=== PATIENT | female | born 1945 | race American Indian/Alaskan Native ===

== ENCOUNTER 2016-09-11 10:12 | Inpatient (IN) | payer MEDICARE ==
[2016-09-11 12:19] LABS: Eosinophils % (Auto) 1.7 % (0.0-4.3); Hematocrit 33.4 % (30.3-42.9); Hemoglobin 10.8 gm/dl (10.1-14.3); Mean Corpuscular HGB Conc 33 % (30-34); Mean Corpuscular Hemoglobin 30 pg (28-32); Mean Corpuscular Volume 93 fl (79-97); Platelet Count 203 K/mm3 (140-440); Red Blood Count 3.59 M/mm3 (3.65-5.03); White Blood Count 4.7 K/mm3 (4.5-11.0)
[2016-09-11 12:42] LABS: Anion Gap 18 mmol/L; BUN/Creatinine Ratio 18.57; Blood Urea Nitrogen 13 mg/dL (7-17); Calcium 9.2 mg/dL (8.4-10.2); Carbon Dioxide 25 mmol/L (22-30); Glucose 87 mg/dL (65-100); Potassium 3.9 mmol/L (3.6-5.0); Sodium 138 mmol/L (137-145)
--- NOTE | 2016-09-11 22:15 | Emergency Department Report ---
HPI - General Chief Complaint: Extremity Problem,Nontraumatic Time Seen by Provider: 09/11/16 21:39 - HPI HPI: This is a 70-year-old F AA female presents the emergency department from her primary care doctor's office, Dr. Jelani Jurado, with complaints of left shoulder pain, a burning chest discomfort, occasional shortness of breath and what appears to be some dysrhythmia. The patient has chronic left shoulder pain that has been worse lately. She was trying to get [employer] but due to traffic she ended up following up with her primary care doctor instead. She mentioned that she had the burning sensation in the chest and they did an EKG and physical examination and told her "something was wrong with my heart." Patient has a history of hypertension, CVA, seizures. She also has been having blood pressure issues and that was another reason she was sent in by the primary care doctor's office. Patient is on amlodipine and lisinopril and says that she takes them compliantly. Patient also is on Keppra for seizures and Eloquist, that she says she takes for the history of stroke. No recent travel or sick contacts at home. She denies any history of RI, PE/DVT. She has not taken anything for symptoms prior to presentation. ED Past Medical Hx - Past Medical History Hx Hypertension: Yes Hx Seizures: Yes - Surgical History Additional Surgical History: RIGHT KNEE SURGERY. FIBROIDS REMOVED. RIGHT ROTATOR CUFF. HEMORRHOIDECTOMY. TUBAL LIGATION - Social History Smoking Status: Never Smoker Substance Use Type: None - Medications Home Medications: Home Medications Medication Instructions Recorded Confirmed Last Taken Type levETIRAcetam [Keppra] 750 mg PO BID #60 tablet 10/06/14 08/16/15 08/16/15 Rx Amlodipine Besylate [Norvasc] 2.5 mg PO DAILY 08/16/15 08/16/15 08/16/15 History Dicyclomine [Bentyl] 10 mg PO QID PRN #20 capsule 08/16/15 Unknown Rx Lisinopril [Zestril TAB] 10 mg PO BID 08/16/15 08/16/15 08/16/15 History Ondansetron [Zofran Odt] 4 mg PO QID PRN #20 tab.rapdis 08/16/15 Unknown Rx Diclofenac Sodium 75 mg PO BID #20 tablet. 04/17/16 Unknown Rx traMADol [Ultram] 50 mg PO Q6HR PRN #20 tablet 04/17/16 Unknown Rx ED Review of Systems ROS: Stated complaint: LT ARM PAIN Other details as noted in HPI Comment: All other systems reviewed and negative Constitutional: denies: chills, fever Eyes: denies: eye pain, eye discharge, vision change ENT: denies: ear pain, throat pain Respiratory: shortness of breath. denies: cough Cardiovascular: chest pain. denies: syncope Gastrointestinal: denies: abdominal pain, nausea, diarrhea Genitourinary: denies: urgency, dysuria, discharge Musculoskeletal: arthralgia. denies: back pain Skin: denies: rash, lesions Neurological: denies: headache, weakness, paresthesias Physical Exam - Physical Exam Vital Signs: Vital Signs 09/11/16 09/11/16 09/11/16 11:39 21:41 21:42 Temperature 98.5 F 98.1 F Pulse Rate 81 98 H Respiratory 16 16 14 Rate Blood Pressure 170/120 Blood Pressure 190/133 [Left] O2 Sat by Pulse 100 96 96 Oximetry Physical Exam: GENERAL: The patient is well-developed well-nourished. HEENT: Normocephalic. Atraumatic. Extraocular motions are intact. Patient has moist mucous membranes. Pupils equal reactive to light bilaterally. NECK: Supple. Trachea is midline. CHEST/LUNGS: Clear to auscultation. There is no respiratory distress noted. Chest discomfort is not reproducible to palpation of chest wall. HEART/CARDIOVASCULAR: Irregularly irregular with slightly rapid rate. ABDOMEN: Abdomen is soft, nontender. Patient has normal bowel sounds. There is no abdominal distention. SKIN: Warm and dry. NEURO: The patient is awake, alert, and oriented. The patient is cooperative. The patient has no focal neurologic deficits. The patient has normal speech. MUSCULOSKELETAL: There is no tenderness or deformity. There is no limitation range of motion. There is no evidence of acute injury. Cap refill less than 2 seconds. Radial pulse +2 over 4 bilaterally. ED Course Vital Signs 09/11/16 09/11/16 09/11/16 11:39 21:41 21:42 Temperature 98.5 F 98.1 F Pulse Rate 81 98 H Respiratory 16 16 14 Rate Blood Pressure 170/120 Blood Pressure 190/133 [Left] O2 Sat by Pulse 100 96 96 Oximetry ED Medical Decision Making - Lab Data Result diagrams: 09/11/16 11:59 09/11/16 12:07 - EKG Data -: EKG Interpreted by Me - EKG Data When compared to previous EKG there are: changes noted (previous EKG shows normal sinus rhythm, normal EKG) Interpretation: other (initial fibrillation, rate of 101 bpm, right bundle branch block) - Radiology Data Radiology results: report reviewed, image reviewed interpreted by me: Chest x-ray did not show any acute process. Heart is normal shape and size. No effusions. No pneumothorax. No signs of pneumonia seen. CT angiography of the chest does not show any signs of pulmonary embolism or dissection. The lungs are clear. No infiltrate, effusion or pneumothorax. - Medical Decision Making This is a 70-year-old female presents to the emergency department after being sent in by her PCP with complaint of uncontrolled blood pressure, chest pain, left shoulder pain and some abnormality of her heart. As soon as the patient was examined and reviewed on the monitor, it appeared that the patient had subsided irregular rhythm. This was confirmed on EKG in which the patient was found to have atrial fibrillation. Patient had some mild RVR. She also has some very elevated blood pressure. She was given a dose of Cardizem which did not cardiovert her did control her rate and helped with the blood pressure. Patient's labs and then mostly unremarkable. There've been negative troponins 3. However the patient did have a slightly elevated an equivocal d-dimer so a CT angiography of the chest was done that did not show any PE, dissection or any acute process. There also was no pleural effusions on CT which is important as the patient's BNP was greater than 3000. She has no history of CHF , no pleural effusions and no pitting edema. Patient is currently on Eloquist which she says is due to her stroke. She has no history of previous atrial fibrillation or dysrhythmia. With the patient's chest pain, new onset atrial fibrillation she will be admitted to the hospital further evaluation and treatment. She's been accepted for admission by the hospitalist, Dr. Cabrales. - Differential Diagnosis atrial fibrillation, RI, PE, CHF Critical Care Time: No Critical care attestation.: If time is entered above; I have spent that time in minutes in the direct care of this critically ill patient, excluding procedure time. ED Disposition Clinical Impression: Hypertensive urgency, New onset atrial fibrillation Atrial fibrillation Qualifiers: Atrial fibrillation type: unspecified Qualified Code(s): I48.91 - Unspecified atrial fibrillation Chest pain Qualifiers: Chest pain type: unspecified Qualified Code(s): R07.9 - Chest pain, unspecified Disposition: OP ADMITTED IP TO THIS HOSP Is pt being admited?: Yes Does the pt Need Aspirin: Yes Condition: Stable Instructions: Chest Pain (ED) Referrals: JELANI JURADO MD [Primary Care Provider] - 3-5 Days Time of Disposition: 01:42
[2016-09-11] MEDS ORDERED: CARDIZEM IV ONE (23:28)
[2016-09-12] MEDS ORDERED: NACL ONE (00:11)
--- NOTE | 2016-09-12 00:47 | Cat Scan Report ---
FINAL REPORT PROCEDURE: CT ANGIO CHEST TECHNIQUE: Computerized tomographic angiography of the chest was performed after the IV injection of iodinated nonionic contrast including image processing. The image data was postprocessed using 2-dimensional multiplanar reformatted (MPR) and 3-dimensional (MIP and/or volume rendered) techniques. HISTORY: CP, elevated dimer COMPARISON: No prior studies are available for comparison. FINDINGS: Heart and pericardium: Normal. Thoracic aorta: Mild atherosclerosis of the aorta and branching vessels. Pulmonary vasculature: No evidence of pulmonary arterial emboli.. Lymph nodes: No enlarged thoracic lymph nodes. Lungs: The lungs are clear. No infiltrate, effusion or pneumothorax. The central airway is patent. Pleural space: No effusion, thickening, or pneumothorax. Musculoskeletal structures: No significant abnormality. Upper abdominal structures: No significant abnormality. IMPRESSION: The lungs are clear. No infiltrate, effusion or pneumothorax. There is no evidence of pulmonary arterial emboli.
--- NOTE | 2016-09-12 01:22 | History and Physical Report ---
History of Present Illness Chief complaint: My shoulder hurts History of present illness: 70 Yo Female with HTN, CVA with RHP, Seizure Disorder presents to ED for evaluation. Pt states that she has been experiencing pain in her left shoulder for the past 3 days with worsening symptoms for the past day. Pt seen and evaluated in ED and found to have new onset Atrial Fib with RVR. Pt denies fever , chills, CP, Palpitations, NVD, recent ill contacts, brbpr, prolonged travel/ immobility, individual/family [id number] of DVT/PE, Syncope, hemoptysis, or productive cough. Past History Past Medical History: hypertension, seizures, stroke Past Surgical History: Other (tubal ligation, right Knee surgery, uterine fibroid excision) Social history: . denies: smoking, alcohol abuse, prescription drug abuse Family history: hypertension Medications and Allergies Allergies Allergy/AdvReac Type Severity Reaction Status Date / Time No Known Allergies Allergy Verified 09/11/16 11:44 Home Medications Medication Instructions Recorded Confirmed Last Taken Type levETIRAcetam [Keppra] 750 mg PO BID #60 tablet 10/06/14 09/12/16 08/16/15 Rx Amlodipine Besylate [Norvasc] 2.5 mg PO DAILY 08/16/15 09/12/16 08/16/15 History Dicyclomine [Bentyl] 10 mg PO QID PRN #20 capsule 08/16/15 09/12/16 Unknown Rx Lisinopril [Zestril TAB] 10 mg PO BID 08/16/15 09/12/16 08/16/15 History Ondansetron [Zofran Odt] 4 mg PO QID PRN #20 tab.rapdis 08/16/15 09/12/16 Unknown Rx Diclofenac Sodium 75 mg PO BID #20 tablet.dr 04/17/16 09/12/16 Unknown Rx traMADol [Ultram] 50 mg PO Q6HR PRN #20 tablet 04/17/16 09/12/16 Unknown Rx Review of Systems All systems: negative Constitutional: chronic pain Exam - Constitutional Vitals: Temp Pulse Resp BP Pulse Ox 98.1 F 124 H 12 200/124 97 09/11/16 21:41 09/11/16 23:54 09/11/16 23:44 09/11/16 23:54 09/11/16 23:44 General appearance: Present: mild distress - EENT Eyes: Present: PERRL ENT: hearing intact, clear oral mucosa - Neck Neck: Present: supple, normal ROM - Respiratory Respiratory effort: normal Respiratory: bilateral: CTA - Cardiovascular Rhythm: irregularly irregular Heart Sounds: Present: S1 & S2. Absent: rub, click - Extremities Extremities: pulses symmetrical, No edema Peripheral Pulses: within normal limits - Abdominal General gastrointestinal: Present: soft, non-tender, non-distended, normal bowel sounds Female genitourinary: Present: normal - Integumentary Integumentary: Present: clear, warm, dry - Musculoskeletal Musculoskeletal: gait normal, strength equal bilaterally - Psychiatric Psychiatric: appropriate mood/affect, intact judgment & insight - Neurologic Neurologic: CNII-XII intact, moves all extremities Results - Labs CBC & Chem 7: 09/11/16 11:59 09/11/16 12:07 Labs: Abnormal lab results 09/11/16 09/11/16 09/11/16 Range/Units 11:59 21:44 21:44 RBC 3.59 L (3.65-5.03) M/mm3 Lymph % (Auto) 37.7 H (13.4-35.0) % [place] % (Auto) 11.9 H (0.0-7.3) % D-Dimer 531.96 H (0-234) ng/mlDDU NT-Pro-B Natriuret Pep 3202 H (0-900) pg/mL Assessment and Plan - Patient Problems (1) Atrial fibrillation Current Visit: Yes Status: Acute Qualifiers: Atrial fibrillation type: unspecified Qualified Code(s): I48.91 - Unspecified atrial fibrillation Plan to address problem: Rate control with cardizem, telemetry monitoring, cardiology consulted, serial cardiac enzymes, ekg, supportive care, thyroid panel (2) Accelerated essential hypertension Current Visit: Yes Status: Acute Plan to address problem: monitor bp q shift, continue current therapy. (3) Seizure Current Visit: Yes Status: Acute Plan to address problem: conitnue keppra, continue current therapy. (4) CVA, old, hemiparesis Current Visit: Yes Status: Acute Plan to address problem: continue current therapy, (5) DVT prophylaxis Current Visit: Yes Status: Acute
[2016-09-12] MEDS ORDERED: TYLENOL PO PRN (01:59)
[2016-09-12] MEDS ORDERED: ZOFRAN IV PRN (01:59)
[2016-09-12] MEDS ORDERED: MILK OF MAGNESIA PO PRN (01:59)
[2016-09-12] MEDS ORDERED: DULCOLAX PR PRN (01:59)
[2016-09-12] MEDS ORDERED: ZOFRAN ODT PO PRN (02:04)
[2016-09-12] MEDS ORDERED: BENTYL PO PRN (02:04)
--- NOTE | 2016-09-12 02:04 | Admit Criteria Form ---
Admission Criteria Documentation: CARDIOLOGY GRG Clinical Indications for Admission to Inpatient Care ( Place 'X' for any and all applicable criteria): Hospital admission is needed for appropriate care of the patient because of ANY ONE of the following (1): [ ] I. Hemodynamic instability as indicated by ALL of the following (1)(2)(3) (4)(5) [ ]a) Vital signs or other findings not as expected for chronic patient condition or baseline [ ]b) Instability indicated by ANY ONE of the following: [ ]i) Hypotension [ ]ii) Symptomatic Tachycardia unresponsive to treatment ( e.g., analgesia, fluids, sedation as indicated) [ ]iii) Inadequate perfusion indicated by ANY ONE of the following: [ ] 1) Lactic acidosis (> 2 mmol/L) [ ] 2) New abnormal capillary refill (> 3 seconds) [ ] 3) Reduced urine output [ ] 4) New altered mental status [ ]iv) Orthostatic vital sign changes unresponsive to treatment (e.g., fluids) [ ]v) IV inotropic or vasopressor medication required to maintain adequate blood pressure or perfusion [ ] II. Severe heart failure as indicated by ANY ONE of the following(17)(18) [ ]a) Respiratory distress [ ]b) Hypotension [ ]c) Anasarca (refractory to outpatient therapy) [ ]d) Cardiac arrhythmias of immediate concern [ ]e) Myocardial ischemia [ ] III. Cardiac arrhythmias or findings of immediate concern indicated by ANY ONE of the following (19)(20): [ ] a) Heart rhythms that are inherently dangerous or unstable indicated by ANY ONE of the following (21)(22)(23): [ ] i) Resuscitated ventricular fibrillation or cardiac arrest [ ] ii) Ventricular escape rhythm [ ] iii) Sustained ventricular tachycardia (30 seconds or more of ventricular rhythm at greater than 100 beats per minute) [ ] iv) Nonsustained ventricular tachycardia and ANY ONE of the following: [ ] 1) Suspected cardiac ischemia as cause or consequence of ventricular tachycardia [ ] 2) In setting of acute myocarditis [ ] b) Unstable cardiac conduction defects indicated by ANY ONE of the following(23)(24)(25) [ ] i) Type II second-degree atrioventricular block [ ]ii) Third-degree atrioventricular block [ ]iii) New-onset left bundle branch block with suspected myocardial ischemia [ ]c) Any heart rhythm and ANY ONE of the following (21)(22)(26)(27) (28) [ ] i) Continuous long-term ECG monitoring needed (e.g., initiation of drug requiring monitoring for more than 24 hours) [ ] ii) Patient has automatic implanted cardioverter defibrillator that is repeatedly firing, malfunctioning, or in need of immediate adjustment of settings beyond the scope of ambulatory or observation care [ ]d) Heart rhythms of concern due to ANY ONE of the following: [ ] i) Hypotension [ ] ii) Respiratory distress [ ] iii) Association with other significant symptoms (e.g., bradycardia with syncope or ongoing dizziness, supraventricular tachycardia with chest pain (14)(15)(17) [ ] IV. Monitoring for cardiac contusion beyond the scope of observation care needed [A](30)(31)(32) [ ] V. Surgical or device complication (e.g., valve replacement complication , pacemaker dysfunction) (35)(41)(44)(45)(46) [ ] . Inpatient palliative care needed. [B](49) Also use Inpatient Palliative Care Criteria [ ] VII. Nonbacterial thrombotic (marantic) endocarditis (36)(43)(47)(48) [X ] VIII. Cardiology condition, symptom, or finding for which emergency and observation care has failed or are not considered appropriate. [ ] IX. Acute valvular disease requiring inpatient as indicated by ANY ONE of the following (41) [ ]a) Acute valvular regurgitation (42) [ ]b) Noninfectious valvulitis (43) [ ]c) Obstructive valve thrombosis [ ]d) Paravalvular leak [ ]e) Other significant valvular disorder remaining after emergency or observation level of care (as appropriate) [ ]X. Pericardial disease requiring inpatient treatment as indicated by ANY ONE of the following (33)(34)(35)(36)(37) [ ]a) Suspected tamponade (38)(39)(40) [ ]b) Hemopericardium [ ]c) Other significant pericardial disorder remaining after emergency or observation level of care (as appropriate) [ ] XI. Cardiac ischemia beyond scope of emergency and observation care. [ ] XII. Hypertension requiring inpatient treatment as indicated by ANY ONE of the following (6)(7)(8) [ ]a) SBP greater than 220 mm Hg or DBP greater than 120 mmHg despite treatment [ ]b) SBP greater than 140 mm Hg or DBP greater than 100 mm Hg with evidence of acute end organ damage as indicated by ANY ONE of the following [ ] i) Altered mental status [ ] ii) Acute renal failure as indicated by new onset of ANY ONE of the following (9)(10)(11)(12)(13) [ ]1) 3-fold rise in serum creatinine from baseline [ ]2) Serum creatinine greater than 4 mg/dL ( 354 micromoles/L) with acute rise greater than 0.5 mg/dL (44.2 micromoles/L) [ ]3) Reduction of more than 75% in estimated glomerular filtration rate from baseline [ ]4) Estimated glomerular filtration rate less than 35 mL/min/1.73m2 (0.59 mL/sec/1.73m2) in child up to 18 years of age [ ]5) Cessation of urine output indicated by ALL of the following [ ]A. Adequate volume status [ ]B. Inadequate urine output as indicated by ANY ONE of the following [ ]a. Urine output less than 0.3 mL/kg/hr for 24 hours [ ]b. Anuria (urine output less than 0.1 mL/kg/hr) for 12 hours [ ] iii) Aortic dissection [ ] iv) Myocardial Ischemia [ ] v) Left ventricular heart failure [ ]vi) Retinal Hemorrhage [ ]vii) Other significant finding [ ]c) Hypertension in child requiring inpatient treatment as indicated by ALL of the following(14)(15)(16) [ ] i) Outpatient treatment not effective, not available, or not appropriate [ ]ii) SBP or DBP greater than 95th percentile for age [ ]iii) Evidence of acute end organ damage as indicated by ANY ONE of the following [ ]1) Altered mental status [ ]2) Acute renal failure as indicated by new onset of ANY ONE of the following(9)(10)(11)(12)(13) [ ]A. 3-fold rise in serum creatinine from baseline [ ]B. Serum creatinine greater than 4 mg/dL (354 micromoles/L) with acute rise greater than 0.5 mg/dL (44.2 micromoles/L) [ ]C. Reduction of more than 75% in estimated glomerular filtration rate from baseline [ ]D. Estimated glomerular filtration rate less than 35 mL/min/1.73m2 (0.59 mL/sec/1.73m2) in child up to 18 years of age [ ]E. Cessation of urine output indicated by ALL of the following [ ]a. Adequate volume status [ ]b. Inadequate urine output as indicated by ANY ONE of the following [ ]i) Urine output less than 0.3 mL/kg/hr for 24 hours [ ]ii) Anuria ( urine output less than 0.1 mL/kg/hr) for 12 hours [ ]3) Severe headache [ ]4) Visual disturbance [ ]5) Retinal hemorrhage [ ]6) Other significant finding [ ]XIII. Complications of transplanted heart indicated by ANY ONE of the following(61): [ ]a) Acute graft rejection requiring inpatient management (eg, intravenous immunosuppression)(62)(63) [ ]b) Acute graft heart failure indicated by ANY ONE of the following(64): [ ]i) Hemodynamic instability [ ]ii) Cardiac arrhythmias of immediate concern [ ]iii) Pulmonary edema that is very severe (eg, mechanical ventilation needed, imminent or likely, need for 100% oxygen to keep oxygen saturation above 90%) [ ]iv) Pulmonary edema that is persistent as indicated by ALL of the following: [ ]1) New need for oxygen therapy to keep oxygen saturation above 90% (or increased FiO2 need from baseline) [ ]2) Has not improved sufficiently with emergency department or observation care IV diuretics or other heart failure treatments[E] [ ]v) Altered mental status that is severe or persistent [ ]vi) Increased creatinine (new on laboratory test) with reduction of more than 50% in estimated glomerular filtration rate from baseline [ ]vii) Progressively (ongoing) rising creatinine (known from past laboratory test) with reduction of more than 25% in estimated glomerular filtration rate from baseline [ ]viii) Acute renal failure [ ]ix) Acute peripheral ischemia (eg, examination shows pulseless, cool, mottled, or cyanotic extremity) [ ]x) Pulmonary artery catheter monitoring needed [ ]xi) Other sign or symptom of heart failure requiring inpatient treatment (ie, too severe or not responsive to outpatient and observation care treatment) [ ]c) Infection requiring inpatient management (eg, Hemodynamic instability, need for intravenous antimicrobial treatment)(66)(67)(68)(69)(70) [ ]d) Cardiac allograft vasculopathy requiring inpatient management ( eg evidence of cardiac ischemia)(71) [ ]e) Other complication of transplanted heart (eg, stroke, severe pulmonary hypertension, severe valvular dysfunction) requiring inpatient management(72) The original [facility] content created by [email or web address] has been revised. The portions of the content which have been revised are identified through the use of italic text or in bold, and [facility] has neither reviewed nor approved the modified material. All other unmodified content is copyright [email or web address]. Please see references footnoted in the original [email or web address] edition 2016 Admission Criteria Met: Yes
[2016-09-12] MEDS: ULTRAM PO PRN ×2 (05:23→17:29)
[2016-09-12] MEDS: CARDIZEM PO SCH ×3 (05:24→16:59)
[2016-09-12] MEDS ORDERED: VOLTAREN DR PO SCH (10:00)
[2016-09-12] MEDS ORDERED: NON-FORMULARY (Levetiracetam [Keppra Tab] 750 MG) PO SCH (10:00)
[2016-09-12] MEDS ORDERED: NORVASC PO SCH (10:00)
[2016-09-12] MEDS ORDERED: NON-FORMULARY (Amlodipine Besylate [Norvasc] 2.5 MG) PO SCH (10:00)
[2016-09-12] MEDS: ELIQUIS PO SCH ×2 (10:05→22:43)
[2016-09-12] MEDS: KEPPRA PO SCH ×2 (10:05→22:43)
[2016-09-12] MEDS: ZESTRIL PO SCH ×2 (10:06→22:44)
--- NOTE | 2016-09-12 12:05 | XRay Report ---
AP CHEST : 09/11/16 21:48 CLINICAL: Chest pain. COMPARISON:08/16/15 FINDINGS: Cardiomegaly and redistribution of pulmonary blood flow to the upper lobes. The lungs are normally expanded and clear. Mild wedging of the right minor fissure. IMPRESSION: Mild CHF but no pulmonary edema.
--- NOTE | 2016-09-12 16:00 | Progress Note ---
Assessment and Plan Assessment and plan: (1) Atrial fibrillation Current Visit: Yes Status: Acute Qualifiers: Atrial fibrillation type: unspecified Qualified Code(s): I48.91 - Unspecified atrial fibrillation Plan to address problem: Rate control with cardizem, telemetry monitoring, cardiology consulted, serial cardiac enzymes, ekg, supportive care, thyroid panel. ordered 2D echo, placed on eliquis (2) Accelerated essential hypertension Current Visit: Yes Status: Acute Plan to address problem: monitor bp q shift, continue current therapy. (3) Seizure Current Visit: Yes Status: Acute Plan to address problem: conitnue keppra, continue current therapy. (4) CVA, old, hemiparesis Current Visit: Yes Status: Acute Plan to address problem: No new issue continue eliquis and statin, (5) DVT prophylaxis Current Visit: Yes Status: Acute not needed on eliquis History Interval history: Pt seen and examined, no acute event reported by the RN c/o exertional SOB, no chest pain now Hospitalist Physical - Physical exam Narrative exam: General appearance: Present: mild distress - EENT Eyes: Present: PERRL ENT: hearing intact, clear oral mucosa - Neck Neck: Present: supple, normal ROM - Respiratory Respiratory effort: normal Respiratory: bilateral: CTA - Cardiovascular Rhythm: irregularly irregular Heart Sounds: Present: S1 & S2. Absent: rub, click - Extremities Extremities: pulses symmetrical, No edema Peripheral Pulses: within normal limits - Abdominal General gastrointestinal: Present: soft, non-tender, non-distended, normal bowel sounds Female genitourinary: Present: normal - Integumentary Integumentary: Present: clear, warm, dry - Musculoskeletal Musculoskeletal: gait normal, strength equal bilaterally - Psychiatric Psychiatric: appropriate mood/affect, intact judgment & insight - Neurologic Neurologic: CNII-XII intact, moves all extremities - Constitutional Vitals: Temp Pulse Resp BP Pulse Ox 98.2 F 80 18 134/95 99 09/12/16 15:09 09/12/16 15:09 09/12/16 15:09 09/12/16 15:09 09/12/16 15:09 General appearance: Present: mild distress Results - Labs CBC & Chem 7: 09/11/16 11:59 09/11/16 12:07 Labs: Laboratory Last Values WBC 4.7 K/mm3 (4.5-11.0) 09/11/16 11:59 RBC 3.59 M/mm3 (3.65-5.03) L 09/11/16 11:59 Hgb 10.8 gm/dl (10.1-14.3) 09/11/16 11:59 Hct 33.4 % (30.3-42.9) 09/11/16 11:59 MCV 93 fl (79-97) 09/11/16 11:59 MCH 30 pg (28-32) 09/11/16 11:59 MCHC 33 % (30-34) 09/11/16 11:59 RDW 14.0 % (13.2-15.2) 09/11/16 11:59 Plt Count 203 K/mm3 (140-440) 09/11/16 11:59 Lymph % (Auto) 37.7 % (13.4-35.0) H 09/11/16 11:59 [place] % (Auto) 11.9 % (0.0-7.3) H 09/11/16 11:59 Eos % (Auto) 1.7 % (0.0-4.3) 09/11/16 11:59 Baso % (Auto) 1.0 % (0.0-1.8) 09/11/16 11:59 Lymph # 1.8 K/mm3 (1.2-5.4) 09/11/16 11:59 [place] # 0.6 K/mm3 (0.0-0.8) 09/11/16 11:59 Eos # 0.1 K/mm3 (0.0-0.4) 09/11/16 11:59 Baso # 0.0 K/mm3 (0.0-0.1) 09/11/16 11:59 Seg Neutrophils % 47.7 % (40.0-70.0) 09/11/16 11:59 Seg Neutrophils # 2.2 K/mm3 (1.8-7.7) 09/11/16 11:59 D-Dimer 531.96 ng/mlDDU (0-234) H 09/11/16 21:44 Sodium 138 mmol/L (137-145) 09/11/16 12:07 Potassium 3.9 mmol/L (3.6-5.0) 09/11/16 12:07 Chloride 99.0 mmol/L (98-107) 09/11/16 12:07 Carbon Dioxide 25 mmol/L (22-30) 09/11/16 12:07 Anion Gap 18 mmol/L 09/11/16 12:07 BUN 13 mg/dL (7-17) 09/11/16 12:07 Creatinine 0.7 mg/dL (0.7-1.2) 09/11/16 12:07 Estimated GFR > 60 ml/min 09/11/16 12:07 BUN/Creatinine Ratio 18.57 % 09/11/16 12:07 Glucose 87 mg/dL (65-100) 09/11/16 12:07 Calcium 9.2 mg/dL (8.4-10.2) 09/11/16 12:07 Troponin T < 0.010 ng/mL (0.00-0.029) 09/11/16 18:21 NT-Pro-B Natriuret Pep 3202 pg/mL (0-900) H 09/11/16 21:44
[2016-09-12] MEDS: PERCOCET 5/325 PO PRN (22:45)
[2016-09-13] MEDS: CARDIZEM PO SCH ×4 (01:15→17:07)
[2016-09-13] MEDS: ZESTRIL PO SCH ×2 (10:09→21:54)
--- NOTE | 2016-09-13 10:11 | Consultation ---
History of Present Illness Consult date: 09/13/16 Consult reason: atrial fibrillation History of present illness: 70-year-old -[place] female who is presenting with left shoulder pain after rests on some substernal tightness denies any diaphoresis nausea or vomiting patient found to be in atrial fibrillation and admitted for fluid management and Cardiology consult obtained. Past History Past Medical History: hypertension, seizures, stroke Past Surgical History: Other (tubal ligation, right Knee surgery, uterine fibroid excision) Social history: . denies: smoking, alcohol abuse, prescription drug abuse Family history: hypertension Medications and Allergies Allergies Allergy/AdvReac Type Severity Reaction Status Date / Time No Known Allergies Allergy Verified 09/11/16 11:44 Home Medications Medication Instructions Recorded Confirmed Last Taken Type levETIRAcetam [Keppra] 750 mg PO BID #60 tablet 10/06/14 09/12/16 08/16/15 Rx Amlodipine Besylate [Norvasc] 2.5 mg PO DAILY 08/16/15 09/12/16 08/16/15 History Dicyclomine [Bentyl] 10 mg PO QID PRN #20 capsule 08/16/15 09/12/16 Unknown Rx Lisinopril [Zestril TAB] 10 mg PO BID 08/16/15 09/12/16 08/16/15 History Ondansetron [Zofran Odt] 4 mg PO QID PRN #20 tab.rapdis 08/16/15 09/12/16 Unknown Rx Diclofenac Sodium 75 mg PO BID #20 tablet. 04/17/16 09/12/16 Unknown Rx traMADol [Ultram] 50 mg PO Q6HR PRN #20 tablet 04/17/16 09/12/16 Unknown Rx Active Meds: Active Medications Acetaminophen (Tylenol) 650 mg PO Q4H PRN PRN Reason: Pain MILD(1-3)/Fever >100.5/MARTINEZ Apixaban (Eliquis) 10 mg PO Q12HR [facility] Last Admin: 09/12/16 22:43 Dose: 10 mg Atorvastatin Calcium (Lipitor) 40 mg PO QHS [facility] Last Admin: 09/12/16 22:44 Dose: 40 mg Bisacodyl (Dulcolax) 10 mg [place] QDAY PRN PRN Reason: Constipation unrelieved by MOM Dicyclomine HCl (Bentyl) 10 mg PO QID PRN PRN Reason: Pain Diltiazem HCl (Cardizem) 30 mg PO Q6HR [facility] Last Admin: 09/13/16 06:40 Dose: 30 mg Levetiracetam (Keppra) 750 mg PO BID [facility] Last Admin: 09/12/16 22:43 Dose: 750 mg Lisinopril (Zestril) 10 mg PO BID [facility] Last Admin: 09/12/16 22:44 Dose: 10 mg Magnesium Hydroxide (Milk Of Magnesia) 30 ml PO Q4H PRN PRN Reason: Constipation Ondansetron HCl (Zofran) 4 mg IV Q8H PRN PRN Reason: N/V unrelieved by Reglan Oxycodone/Acetaminophen (Percocet 5/325) 1 tab PO Q6H PRN PRN Reason: Pain, Moderate (4-6) Last Admin: 09/12/16 22:45 Dose: 1 tab Tramadol HCl (Ultram) 50 mg PO Q6HR PRN PRN Reason: Pain Last Admin: 09/12/16 17:29 Dose: 50 mg Review of Systems Ears, nose, mouth and throat: no ear pain, no tinnitis Cardiovascular: no chest pain, no orthopnea, no palpitations, no edema, no syncope Genitourinary Female: no pelvic pain, no dysuria, no urinary frequency, no urgency Musculoskeletal: no neck stiffness, no neck pain Integumentary: no rash, no pruritis Neurological: no weakness, no numbness, no headaches Endocrine: no cold intolerance, no heat intolerance, no polyphagia Hematologic/Lymphatic: no easy bruising, no easy bleeding Allergic/Immunologic: no urticaria, no allergic rhinitis Physical Examination Vital Signs Temp Pulse Resp BP Pulse Ox 98.5 F 81 16 170/120 100 09/11/16 11:39 09/11/16 11:39 09/11/16 11:39 09/11/16 11:39 09/11/16 11:39 General appearance: no acute distress, well-nourished HEENT: Positive: PERRL, Mucus Membranes Moist Neck: Positive: neck supple, trachea midline Cardiac: Positive: irregularly irregular, S1/S2, PMI, Laterally Displaced. Negative: Audible Murmur Lungs: Positive: clear to auscultation, Normal Breath Sounds Neuro: Positive: Grossly Intact Abdomen: Positive: Soft, Active Bowel Sounds. Negative: Tender, Distended Female genitourinary: deferred Skin: Positive: Clear Incision: Cardiac Cath Site Musculoskeletal: No Pain, Normal Range of Motion Extremities: Present: normal. Absent: edema Results 09/11/16 11:59 09/11/16 12:07 - EKG Interpretation EKG shows: atrial fibrillation Assessment and Plan 1. Atypical chest pain probably musculoskeletal in origin. 2. Atrial fibrillation with controlled ventricular response 3. Essential hypertension 4. History of CVA 5. History of seizures. Plan. Patient's is currently stable we will obtain an echocardiogram to assess global and regional LV function. Lexiscan thallium will be done to rule out ischemic coronary artery disease check TSH level.
[2016-09-13] MEDS: ELIQUIS PO SCH ×2 (10:12→21:52)
[2016-09-13] MEDS: KEPPRA PO SCH ×2 (10:12→21:52)
[2016-09-13] MEDS: PERCOCET 5/325 PO PRN ×3 (10:21→23:11)
--- NOTE | 2016-09-13 14:34 | Progress Note ---
Assessment and Plan Assessment and plan: (1) Atrial fibrillation Current Visit: Yes Status: Acute Qualifiers: Atrial fibrillation type: unspecified Qualified Code(s): I48.91 - Unspecified atrial fibrillation Plan to address problem: Rate control with cardizem, telemetry monitoring, cardiology following, placed on eliquis thyroid pannel normal 2d echo report pending cardiology recommended stress test tomorrow am (2) Accelerated essential hypertension Current Visit: Yes Status: Acute Plan to address problem: monitor bp q shift, continue cardizem and lisinopril. (3) Seizure Current Visit: Yes Status: chronic Plan to address problem: amelia diaz (4) CVA, old, hemiparesis Current Visit: Yes Status: chronic Plan to address problem: No new issue continue eliquis and statin, risk factor modification (5) left shoulder pain Current Visit: Yes Status: Acute Plan to address problem: will get left shoulder xry (6) DVT prophylaxis Current Visit: Yes Status: Acute not needed on eliquis History Interval history: Pt seen and examined, no acute event reported by the RN c/o exertional SOB, no chest pain now c/o left shoulder pain Hospitalist Physical - Physical exam Narrative exam: General appearance: Present: mild distress - EENT Eyes: Present: PERRL ENT: hearing intact, clear oral mucosa - Neck Neck: Present: supple, normal ROM - Respiratory Respiratory effort: normal Respiratory: bilateral: CTA - Cardiovascular Rhythm: irregularly irregular Heart Sounds: Present: S1 & S2. Absent: rub, click - Extremities Extremities: pulses symmetrical, No edema Peripheral Pulses: within normal limits - Abdominal General gastrointestinal: Present: soft, non-tender, non-distended, normal bowel sounds Female genitourinary: Present: normal - Integumentary Integumentary: Present: clear, warm, dry - Musculoskeletal Musculoskeletal: gait normal, strength equal bilaterally - Psychiatric Psychiatric: appropriate mood/affect, intact judgment & insight - Neurologic Neurologic: CNII-XII intact, moves all extremities - Constitutional Vitals: Temp Pulse Resp BP Pulse Ox 97.8 F 87 18 170/103 100 09/13/16 07:40 09/13/16 12:55 09/13/16 07:40 09/13/16 07:40 09/13/16 07:40 General appearance: Present: mild distress Results - Labs CBC & Chem 7: 09/11/16 11:59 09/11/16 12:07 Labs: Laboratory Last Values WBC 4.7 K/mm3 (4.5-11.0) 09/11/16 11:59 RBC 3.59 M/mm3 (3.65-5.03) L 09/11/16 11:59 Hgb 10.8 gm/dl (10.1-14.3) 09/11/16 11:59 Hct 33.4 % (30.3-42.9) 09/11/16 11:59 MCV 93 fl (79-97) 09/11/16 11:59 MCH 30 pg (28-32) 09/11/16 11:59 MCHC 33 % (30-34) 09/11/16 11:59 RDW 14.0 % (13.2-15.2) 09/11/16 11:59 Plt Count 203 K/mm3 (140-440) 09/11/16 11:59 Lymph % (Auto) 37.7 % (13.4-35.0) H 09/11/16 11:59 [place] % (Auto) 11.9 % (0.0-7.3) H 09/11/16 11:59 Eos % (Auto) 1.7 % (0.0-4.3) 09/11/16 11:59 Baso % (Auto) 1.0 % (0.0-1.8) 09/11/16 11:59 Lymph # 1.8 K/mm3 (1.2-5.4) 09/11/16 11:59 [place] # 0.6 K/mm3 (0.0-0.8) 09/11/16 11:59 Eos # 0.1 K/mm3 (0.0-0.4) 09/11/16 11:59 Baso # 0.0 K/mm3 (0.0-0.1) 09/11/16 11:59 Seg Neutrophils % 47.7 % (40.0-70.0) 09/11/16 11:59 Seg Neutrophils # 2.2 K/mm3 (1.8-7.7) 09/11/16 11:59 D-Dimer 531.96 ng/mlDDU (0-234) H 09/11/16 21:44 Sodium 138 mmol/L (137-145) 09/11/16 12:07 Potassium 3.9 mmol/L (3.6-5.0) 09/11/16 12:07 Chloride 99.0 mmol/L (98-107) 09/11/16 12:07 Carbon Dioxide 25 mmol/L (22-30) 09/11/16 12:07 Anion Gap 18 mmol/L 09/11/16 12:07 BUN 13 mg/dL (7-17) 09/11/16 12:07 Creatinine 0.7 mg/dL (0.7-1.2) 09/11/16 12:07 Estimated GFR > 60 ml/min 09/11/16 12:07 BUN/Creatinine Ratio 18.57 % 09/11/16 12:07 Glucose 87 mg/dL (65-100) 09/11/16 12:07 Calcium 9.2 mg/dL (8.4-10.2) 09/11/16 12:07 Troponin T < 0.010 ng/mL (0.00-0.029) 09/11/16 18:21 NT-Pro-B Natriuret Pep 3202 pg/mL (0-900) H 09/11/16 21:44 - Imaging and Cardiology CT scan - chest: report reviewed (no PE)
[2016-09-14] MEDS ORDERED: APRESOLINE IV PRN (00:35)
[2016-09-14] MEDS ORDERED: LEXISCAN IV ONE ×2 (08:35→08:43)
--- NOTE | 2016-09-14 09:10 | XRay Report ---
LEFT SHOULDER RADIOGRAPHS INDICATION: Pain. COMPARISON: None similar. FINDINGS: Frontal and Y views of the left shoulder, 3 projections demonstrate normal humeral head contour, well positioned against the glenoid. Greater tuberosity and acromial degenerative spurring noted. Preserved scapular contour. Normal visualized soft tissues, left ribs and lung. Aortic knob calcifications. Cardiomegaly not excluded. CONCLUSION: No acute left shoulder radiographic abnormality with degenerative changes noted, as described. Thank you for the opportunity to participate in this patient's care.
[2016-09-14] MEDS ORDERED: ZESTRIL PO SCH (10:00)
[2016-09-14] MEDS ORDERED: CARDIZEM CD PO SCH (10:00)
[2016-09-14] MEDS: KEPPRA PO SCH (11:36)
--- NOTE | 2016-09-14 14:57 | Discharge Summary ---
Providers - Providers Date of Admission: 09/12/16 01:59 Date of discharge: 09/14/16 Attending physician: RIKY PAYTON 09/12/16 11:11 Consult to Physician [CONS] Routine Consulting Provider: NILS PACHECO Reason For Exam: atrial fib Place consult to:: Dr. Pacheco Notified:: Yusra RN Phone number called:: Was contact made?: Yes If yes, spoke with:: [facility] Time called:: 12:24 Primary care physician: GURVINDER JURADO Hospitalization Condition: Stable Hospital course: 70 Yo Female with h/o HTN, CVA with RHP, Seizure Disorder presented to ED for evaluation of left shoulder and chest pain found to have uncontrolled HR with Atrial Fib with RVR. Patient was admitted in the hospital and placed on cardizem and eliquis. Cardiology was consulted and she had a stress test which was normal. 2D echo showed preserved EF. Her HR was better controlled with cardizem. Her left shoulder of the x-ray showed degenerative changes. She was discharged back home in stable condition. Discharge diagnosis: (1) Atrial fibrillation Current Visit: Yes Status: Acute on chronic Qualifiers: Atrial fibrillation type: unspecified Qualified Code(s): I48.91 - Unspecified atrial fibrillation Plan to address problem: Rate control with cardizem, anticoagulation with eliquis thyroid pannel normal 2d echo report showed normal EF stress test was normal (2) Accelerated essential hypertension Current Visit: Yes Status: Acute Plan to address problem: continue cardizem and lisinopril. (3) Seizure Current Visit: Yes Status: chronic Plan to address problem: lucyitирина diaz (4) CVA, old, hemiparesis Current Visit: Yes Status: chronic Plan to address problem: No new issue continue eliquis and statin, risk factor modification (5) left shoulder pain Current Visit: Yes Status: Acute Plan to address problem: left shoulder xry showed osteoarthritis pain control and outpt follow up Disposition: DISCHARGED TO HOME OR SELFCARE Time spent for discharge: 32 minutes Core Measure Documentation - Palliative Care Palliative Care/ Comfort Measures: Not Applicable - Core Measures Any of the following diagnoses?: history only Exam - Physical Exam Narrative exam: General appearance: Present: mild distress - EENT Eyes: Present: PERRL ENT: hearing intact, clear oral mucosa - Neck Neck: Present: supple, normal ROM - Respiratory Respiratory effort: normal Respiratory: bilateral: CTA - Cardiovascular Rhythm: irregularly irregular Heart Sounds: Present: S1 & S2. Absent: rub, click - Extremities Extremities: pulses symmetrical, No edema Peripheral Pulses: within normal limits - Abdominal General gastrointestinal: Present: soft, non-tender, non-distended, normal bowel sounds Female genitourinary: Present: normal - Integumentary Integumentary: Present: clear, warm, dry - Musculoskeletal Musculoskeletal: gait normal, strength equal bilaterally - Psychiatric Psychiatric: appropriate mood/affect, intact judgment & insight - Neurologic Neurologic: CNII-XII intact, moves all extremities - Constitutional Vitals: Temp Pulse Resp BP Pulse Ox 98.5 F 102 H 20 165/93 99 09/14/16 11:04 09/14/16 11:04 09/14/16 11:04 09/14/16 11:04 09/14/16 11:04 Plan Activity: fall precautions Weight Bearing Status: Non-Weight Bearing Diet: low cholesterol, low salt Follow up with: GURVINDER JURADO MD [Primary Care Provider] - 3-5 Days Forms: Accompanied Note Prescriptions: AtorvaSTATin [Lipitor] 40 mg PO QHS #30 tablet Apixaban [Eliquis] 5 mg PO Q12HR #60 tablet Diclofenac Sodium 75 mg PO BID #20 tablet.dr Portertiazelea Cd [Cardizem CD] 240 mg PO QDAY #30 cap Lisinopril [Zestril TAB] 20 mg PO QDAY #30 tablet traMADol [Ultram 50 MG tab] 50 mg PO Q6HR PRN #20 tablet PRN Reason: Pain
--- NOTE | 2016-09-14 19:30 | Progress Note ---
Assessment and Plan - Patient Problems (1) Atrial fibrillation Status: Acute Qualifiers: Atrial fibrillation type: unspecified Qualified Code(s): I48.91 - Unspecified atrial fibrillation Plan to address problem: The patient presented with left shoulder arthritic pain, no cardiac symptoms. Finding of atrial fibrillation is not new, patient should continue treatment with AV gail blocking agents and oral anticoagulation with Eliquis. Noninvasive cardiac workup here is negative including a normal thallium stress test and well-preserved EF of 50-55% on echocardiogram. No further cardiac workup is indicated, it will be prudent at this time, to proceed with further evaluation and treatment of the patient's presenting left shoulder arthritic pain. Subjective Date of service: 09/14/16 Interval history: The patient presented to the hospital with primary complaint of left shoulder pain, consistent with her chronic left shoulder arthritis. She had pain on movement of the shoulder. She had surgery previously on her right shoulder for the same complaints. There was no cardiac complaints of chest pain or angina, shortness of breath or palpitations. On her presentation here, she was found with atrial fibrillation with reasonably well-controlled ventricular rate, and a right bundle branch block morphology. The atrial fibrillation is not new. The patient reports to me a history of paroxysmal atrial fibrillation, for which she has been treated chronically by her search engine marketing manager who is in [facility]. The patient states that on an outpatient basis she takes Eliquis for stroke prophylaxis. It would appear that her atrial fibrillation is likely paroxysmal given that a previous EKG not records from September 2014 shows in a normal sinus rhythm with no bundle branch block. Cardiac workup on this presentation includes an echocardiogram that showed left ventricular ejection fraction well preserved at 50-55%, and a Persantin thallium stress test done today that was normal. Objective Vital Signs Temp Pulse Pulse Pulse Pulse Resp Resp 09/14/16 15:37 97.6 F 88 20 09/14/16 11:04 98.5 F 102 H 20 09/14/16 10:00 90 91 H 94 H 09/14/16 07:20 98.1 F 95 H 20 09/14/16 05:00 98.8 F 95 H 20 09/14/16 01:03 94 H 09/14/16 00:11 18 09/14/16 00:00 98.7 F 94 H 19 09/13/16 23:11 18 09/13/16 22:00 90 18 18 09/13/16 21:54 89 09/13/16 20:00 98.9 F 89 21 BP BP Pulse Ox 09/14/16 15:37 152/92 96 09/14/16 11:04 165/93 99 09/14/16 10:00 97 09/14/16 07:20 169/95 100 09/14/16 05:00 136/95 99 09/14/16 01:03 161/106 09/14/16 00:11 09/14/16 00:00 161/106 98 09/13/16 23:11 09/13/16 22:00 09/13/16 21:54 158/95 09/13/16 20:00 158/95 99 - Physical Examination General: No Apparent Distress HEENT: Positive: PERRL, Mucus Membranes Moist Neck: Positive: neck supple, trachea midline Cardiac: Positive: irregularly irregular Lungs: Positive: Decreased Breath Sounds Neuro: Positive: Grossly Intact Abdomen: Positive: Soft, Active Bowel Sounds. Negative: Tender, Distended Skin: Positive: Clear Extremities: Present: normal. Absent: edema
--- NOTE | 2016-09-14 21:36 | Treadmill Report ---
THALLIUM STRESS TEST LEFT VENTRICLE: Left ventricular chamber size at the upper limits of normal. Perfusion study demonstrates homogeneous uptake of the tracer in all segments, no significant perfusion defects identified. Normal apical thinning is noted. Gated analysis is not available due to the patient's underlying atrial fibrillation. CONCLUSION: Normal stress and rest myocardial perfusion scan. JOB# [id number] CA/NTS
[2016-09-14] MEDS ORDERED: ELIQUIS PO SCH (22:00)
[2016-09-15] MEDS ORDERED: CARDIZEM CD PO SCH (10:00)
[2016-09-15 12:30] VITALS: BP 183/129
== END 2016-09-14 19:18 | disposition home health service (06) | DRG 309 ==
LOC: ED 10:12 → 4A 09-12 01:59
PROVIDERS: ADMIT Internal Medicine; ATTEND Internal Medicine
DX: I48.91 Unspecified atrial fibrillation (principal); I69.959 Hemiplegia and hemiparesis following unspecified cerebrovascular disease affecting unspecified side; I10 Essential (primary) hypertension; G40.909 Epilepsy, unspecified, not intractable, without status epilepticus; I45.10 Unspecified right bundle-branch block; Z82.49 Family history of ischemic heart disease and other diseases of the circulatory system; Z98.51 Tubal ligation status; Z98.890 Other specified postprocedural states
CPT/HCPCS: 36415; 71010; 71275; 78452; 80048; 83880; 84443; 84484; 85025; 85379; 93005; 93010; 93017; 93306; 96374; A9270-GY; A9502; J0360; J2785; Q9967